=== PATIENT | male | born 1960 | race Two or more races ===

== ENCOUNTER 2016-10-07 12:35 | Emergency (ER) | payer SELFPAY ==
[2016-10-07] MEDS ORDERED: Diphtheria,Pertussis(Acell),Tetanus Vaccine 0.5 ML Syringe IM ONE (13:06)
--- NOTE | 2016-10-07 13:06 | EDM.PDOC ---
ED HPI GENERAL MEDICAL PROBLEM - General Chief Complaint: Lower Extremity Injury/Pain Stated Complaint: RIGHT LEG PAIN Time Seen by Provider: 10/07/16 12:59 Source of Information: Reports: Patient History Limitations: Reports: No Limitations - History of Present Illness INITIAL COMMENTS - FREE TEXT/NARRATIVE: HISTORY AND PHYSICAL: []56-year-old gentleman presenting with injury to his left lower leg History of Present Illness: [] Patient was getting out of a boom truck and hit his lower legs 3 or 4 days ago Denies having any pain but there is erythema heat and a "lump" there Has not had a tetanus vaccine in the last 5 years Review of Systems: As per history of present illness and below otherwise all systems reviewed and negative. Past medical history: As per history of present illness and as reviewed below otherwise noncontributory. Surgical history: As per history of present illness and as reviewed below otherwise noncontributory. Social history: No reported history of drug or alcohol abuse. Family history: As per history of present illness and as reviewed below otherwise noncontributory. Physical exam: Alert and oriented gentleman very polite answering questions in full sentences without any shortness of breath HEENT: Atraumatic, normocehpalic, pupils reactive, negative for conjunctival pallor or scleral icterus, mucous membranes moist, , neck supple, nontender, trachea midline. Lungs: Clear to auscultation, breath sounds equal bilaterally, chest non tender. Heart: S1S2, regular, negative for clicks, rubs, or JVD. Abdomen: Soft, nondistended, nontender. Negative for masses or hepatossplenmegaly. Negative for costovertebral tenderness. Pelvis: Stable nontender. Genitourinary: Deferred. Rectal: Deferred Extremities: Medial portion of the anterior lower left leg with heat, tender upon palpation, firmness noted. Pedal Pulses intact, negative for cords or calf pain. Neurovascular unremarkable. Neuro: Awake, alert, oriented. Cranial nerves II through XII unremarkable. Cerebellum unremarkable. Motor and sensory unremarkable throughout. Exam nonfocal. With erythema and heat this reading from this injury and contusion place him on antibiotics for 1 week Have discussed the injury with the patient and he has agreeable to this recommended course of action and verbalizes understanding. Diagnostics: [CBC CMP/ultrasound left lower leg] Therapeutics: []Tetanus vaccine Impression: [Contusion with superficial hematoma] Plan: [Discharged to home Place on antibiotic therapy cephalexin 500 3 times a day 7 days] Definitive disposition and diagnosis as appropriate pending reevaluation and review of above. Onset: Sudden Duration: Day(s): (3-4) Location: Reports: Lower Extremity, Left - Related Data Allergies Allergy/AdvReac Type Severity Reaction Status Date / Time No Known Allergies Allergy Verified 10/07/16 12:48 Home Meds: Home Meds Cephalexin [IJP: Cephalexin] 500 mg PO .EVERY 8 HOURS #21 cap 10/07/16 [Rx] Past Medical History HEENT History: Reports: None Cardiovascular History: Reports: None Respiratory History: Reports: None Gastrointestinal History: Reports: None Genitourinary History: Reports: None Psychiatric History: Reports: None - Past Surgical History HEENT Surgical History: Reports: None Respiratory Surgical History: Reports: None GI Surgical History: Reports: None Social & Family History - Tobacco Use Smoking Status *Q: Current Every Day Smoker Years of Tobacco use: 1 Packs/Tins Daily: 0.9 Tobacco Use Comment: started 3 months ago on smoking Review of Systems - Review of Systems Review Of Systems: ROS reveals no pertinent complaints other than HPI. ED EXAM, GENERAL - Physical Exam Exam: See Below Course - Vital Signs Last Recorded V/S: Last Vital Signs Temp 36.4 C 10/07/16 12:49 Pulse 75 10/07/16 12:49 Resp 18 10/07/16 12:49 BP 131/63 10/07/16 12:49 Pulse Ox 98 10/07/16 12:49 - Orders/Labs/Meds Orders: Active Orders 24 hr Category Date Time Status Vaccines to be Administered [RC] PER UNIT ROUTINE Care 10/07/16 13:06 Active Venous Doppler Lwr Ext Lt [US] Stat Exams 10/07/16 13:00 Taken COMPREHENSIVE METABOLIC PN,CMP [CHEM] Stat Lab 10/07/16 13:14 Received Labs: Laboratory Tests 10/07/16 Range/Units 13:14 WBC 6.61 (4.0-11.0) K/uL RBC 4.86 (4.50-5.90) M/uL Hgb 14.2 (13.0-17.0) g/dL Hct 42.2 (38.0-50.0) % MCV 86.8 (80.0-98.0) fL MCH 29.2 (27.0-32.0) pg MCHC 33.6 (31.0-37.0) g/dL RDW Std Deviation 40.2 (28.0-62.0) fl RDW Coeff of Mely 13 (11.0-15.0) % Plt Count 167 (150-400) K/uL MPV 11.20 (7.40-12.00) fL Neut % (Auto) 57.1 (48.0-80.0) % Lymph % (Auto) 33.6 (16.0-40.0) % [place] % (Auto) 7.6 (0.0-15.0) % Eos % (Auto) 1.4 (0.0-7.0) % Baso % (Auto) 0.3 (0.0-1.5) % Neut # (Auto) 3.8 (1.4-5.7) K/uL Lymph # (Auto) 2.2 (0.6-2.4) K/uL [place] # (Auto) 0.5 (0.0-0.8) K/uL Eos # (Auto) 0.1 (0.0-0.7) K/uL Baso # (Auto) 0.0 (0.0-0.1) K/uL Meds: Medications Discontinued Medications Generic Name Dose Route Start Last Admin Trade Name Freq PRN Reason Stop Dose Admin Diphtheria/Tetanus/Acell Pertussis 0.5 ml 10/07/16 13:06 Adacel IM 10/07/16 13:07 .ONCE ONE Departure - Departure Time of Disposition: 13:38 Disposition: Home, Self-Care 01 Condition: Good Clinical Impression: Contusion of left lower leg Qualifiers: Encounter type: initial encounter Qualified Code(s): S80.12XA - Contusion of left lower leg, initial encounter - Discharge Information Prescriptions: Cephalexin [IJP: Cephalexin] 500 mg PO .EVERY 8 HOURS #21 cap Referrals: PCP,None [Primary Care Provider] - Forms: ED Department Discharge - My Orders Last 24 Hours: My Active Orders 10/07/16 13:00 Venous Doppler Lwr Ext Lt [US] Stat 10/07/16 13:06 Vaccines to be Administered [RC] PER UNIT ROUTINE 10/07/16 13:14 COMPREHENSIVE METABOLIC PN,CMP [CHEM] Stat - Assessment/Plan Last 24 Hours: My Active Orders 10/07/16 13:00 Venous Doppler Lwr Ext Lt [US] Stat 10/07/16 13:06 Vaccines to be Administered [RC] PER UNIT ROUTINE 10/07/16 13:14 COMPREHENSIVE METABOLIC PN,CMP [CHEM] Stat
[2016-10-07] MEDS ORDERED: Bacitracin Oint 1 GM U/D Packet TOP ONE (13:43)
[2016-10-07 13:48] LABS: CHLORIDE,CL 107 mmol/L (98-110); SODIUM,NA 140 mmol/L (136-146)
--- NOTE | 2016-10-07 14:02 | US ---
Lower extremity venous Doppler Left lower extremity venous Doppler was performed demonstrating normal augmentation phasicity and ab sent pulsatility lower extremity veins which compress well. There is a superficial thrombus at the s ite of injury in the calf. Impression: No evidence of deep vein thrombosis
[2016-10-07 14:23] VITALS: BP 126/78
== END 2016-10-07 14:23 | disposition home or self-care (01) ==
LOC: MW.ED 12:35
DX: S80.12XA Contusion of left lower leg, initial encounter (principal); W22.8XXA Striking against or struck by other objects, initial encounter; F17.210 Nicotine dependence, cigarettes, uncomplicated; Z23 Encounter for immunization
CPT/HCPCS: 36415; 80053; 85025; 90471; 90715; 93971-26-LT; 93971-LT; 99283; 99284-25